=== PATIENT | female | born 1960 | race Caucasian/White ===

== ENCOUNTER 2017-05-04 11:40 | Emergency (ER) | payer MEDICAID, OTHER ==
[~2017-05-04] VITALS: Ht 157.5 cm; Wt 61.5 kg
[~2017-05-04 11:40] MED LIST: CARB200T14 PO; CITA-48 PO; DIAZ10TA PO; FLAG500T PO; LEXA10TA PO; MAGN400 PO; OMEP20TA PO; SODI1 PO; TEMA30CA PO; ZIPR80CA PO
[2017-05-04 11:44] VITALS: BP 119/79; PULSE 90; RESP 18; TEMP 97.9; O2SAT 98
[2017-05-04 11:58] VITALS: O2SAT 98
[2017-05-04] MEDS ORDERED: DIAZ10 PO (11:58)
[2017-05-04] MEDS ORDERED: FOLI400T PO (11:58)
[2017-05-04] MEDS ORDERED: HYDR-2374 PO (11:58)
[2017-05-04] MEDS ORDERED: IBUP400T20 PO (11:58)
[2017-05-04] MEDS ORDERED: TEGR200T PO (11:58)
[2017-05-04] MEDS ORDERED: OMEP40CA2 PO (11:58)
[2017-05-04] MEDS ORDERED: VANCOMYCIN INJ 1,000 MG in SODIUM CHLOR 0.9% 250 ML INJ 250 ML IV ONE (12:00)
--- NOTE | 2017-05-04 12:01 | PD ---
HPI Chief Complaint: Pain: Acute or Chronic Time Seen by Provider: 11:49 Travel History International Travel<30 days: No Contact w/Intl Traveler<30days: No Traveled to known affect area: No History of Present Illness HPI Patient is a 57-year-old female presents emergency department for evaluation of left ankle pain. She states she's had a problem with left ankle some time. She states that every time her ankle hurts her at usually because the infection is coming back. She states that she usually needs a dose of IV antibiotics for this. Patient states she is on chronic pain medicine and ran out of her pain medicine a few days ago. According to ED for sepsis is early for her she received a 30 days supply of 90 tablets on April 07. Patient states "I don't think I need any pain medicine right now just antibiotics". Patient denies any fever denies any nausea vomiting or generalized symptoms. PFSH Past Medical History Bipolar Disorder: Yes Anxiety: Yes GERD: Yes Influenza Vaccination: No ?: Not Menopausal: Yes Past Surgical History Other Surgery: Yes Social History Alcohol Use: No Tobacco Use: Yes Substance Use: No Allergies-Medications (Allergen,Severity, Reaction): Coded Allergies: No Known Allergies (Unverified , 11/11/12) Reported Meds & Prescriptions Reported Meds & Active Scripts Active Doxycycline Hyclate 100 Mg Cap 100 Mg PO BID Reported Ibuprofen 400 Mg Tab 400 Mg PO Q6H PRN Folic Acid 0.4 Mg Tab 400 Mcg PO DAILY Valium (Diazepam) 10 Mg Tab 10 Mg PO BID PRN Omeprazole 40 Mg Cap 40 Mg PO DAILY Tegretol (Carbamazepine) 200 Mg Tab 400 Mg PO BID Hydrocodone-Acetaminophen 10-300 Tab 1 Tab PO TID PRN Review of Systems Except as stated in HPI: all other systems reviewed are Neg Physical Exam Narrative GENERAL: Well-developed well-nourished no obvious distress SKIN: Focused skin assessment warm/dry. HEAD: Atraumatic. Normocephalic. EYES: Pupils equal and round. No scleral icterus. No injection or drainage. ENT: No nasal bleeding or discharge. Mucous membranes pink and moist. NECK: Trachea midline. No JVD. CARDIOVASCULAR: Regular rate and rhythm. No murmur appreciated. RESPIRATORY: No accessory muscle use. Clear to auscultation. Breath sounds equal bilaterally. GASTROINTESTINAL: Abdomen soft, non-tender, nondistended. Hepatic and splenic margins not palpable. MUSCULOSKELETAL: Post surgical changes of the left ankle, no warmth no edema is appreciated. Minimally tender to palpation, no bony tenderness. Full nontender range of motion patient is able to ambulate. NEUROLOGICAL: Awake and alert. No obvious cranial nerve deficits. Motor grossly within normal limits. Normal speech. PSYCHIATRIC: Appropriate mood and affect; insight and judgment normal. Data Data Last Documented VS Vital Signs Date Time Temp Pulse Resp B/P (MAP) Pulse Ox O2 Delivery O2 Flow Rate FiO2 05/04/17 14:44 89 20 120/84 (96) 98 05/04/17 11:58 Room Air 05/04/17 11:44 97.9 Orders Orders Complete Blood Count With Diff (05/04/17 11:49) Comprehensive Metabolic Panel (05/04/17 11:49) Blood Culture (05/04/17 11:49) Ecg Monitoring (05/04/17 11:49) Iv Access Insert/Monitor (05/04/17 11:49) Oximetry (05/04/17 11:49) Oxygen Administration (05/04/17 11:49) Vancomycin Inj (Vancomycin Inj) (05/04/17 12:00) Ankle, Complete ([id number]) (05/04/17 ) Doxycycline (Vibramycin) (05/04/17 14:30) Labs Laboratory Tests Test 05/04/17 12:49 White Blood Count 15.6 TH/MM3 Red Blood Count 3.84 MIL/MM3 Hemoglobin 12.5 GM/DL Hematocrit 37.8 % Mean Corpuscular Volume 98.5 FL Mean Corpuscular Hemoglobin 32.5 PG Mean Corpuscular Hemoglobin Concent 33.0 % Red Cell Distribution Width 14.7 % Platelet Count 380 TH/MM3 Mean Platelet Volume 7.5 FL CBC Comment AUTO DIFF Differential Total Cells Counted 100 Neutrophils % (Manual) 78 % Lymphocytes % 12 % Monocytes % 9 % Eosinophils % 1 % Neutrophils # (Manual) 12.2 TH/MM3 Differential Comment FINAL DIFF MANUAL Platelet Estimate NORMAL Platelet Morphology Comment NORMAL Blood Urea Nitrogen 10 MG/DL Creatinine 0.55 MG/DL Random Glucose 88 MG/DL Total Protein 7.4 GM/DL Albumin 3.4 GM/DL Calcium Level 8.4 MG/DL Alkaline Phosphatase 82 U/L Aspartate Amino Transf (AST/SGOT) 7 U/L Alanine Aminotransferase (ALT/SGPT) 21 U/L Total Bilirubin 0.3 MG/DL Sodium Level 131 MEQ/L Potassium Level 4.5 MEQ/L Chloride Level 98 MEQ/L Carbon Dioxide Level 28.0 MEQ/L Anion Gap 5 MEQ/L Estimat Glomerular Filtration Rate 114 ML/MIN MDM Medical Decision Making Medical Screen Exam Complete: Yes Emergency Medical Condition: Yes Differential Diagnosis Chronic indolent infection, sepsis unlikely, osteomyelitis seems unlikely, abscess excluded clinically. Narrative Course Patient roomed emergency Department, she does have minimally elevated white blood cell count with minimal left shift. She was given a dose of IV vancomycin and blood cultures drawn and sent. However the patient appears very well and is sitting upright in a stretcher reading a novel. She will be discharged on doxycycline. Last 24 hours Impressions Ankle X-Ray 05/04/17 0000 Signed Impressions: Service Date/Time: Thursday, May 04, 2017 13:27 - CONCLUSION: 1. Distal left tibia and fibula deformity characteristic of old healed fractures. 2. Soft tissue swelling in the mid calf to ankle with associated subcortical sclerosis in the distal tibia. Chronic osteomyelitis needs to be considered. 3. 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 Tremaine Yang MD I discussed with her the results of her x-ray and recommended close follow-up with her primary care physician as well as her infectious disease officer. She states she wants to go home and I think is reasonable this time. Diagnosis Primary Impression: Chronic osteomyelitis Med/Other Pt SpecificInfo: Prescription(s) given Scripts Doxycycline Hyclate (Doxycycline Hyclate) 100 Mg Cap 100 MG PO BID for Infection, #28 CAP 0 Refills Prov: Tate Haley MD 05/04/17 Disposition: 01 DISCHARGE HOME Condition: Stable Tate Haley MD May 04, 2017 12:01
[2017-05-04 13:02] LABS: HEMATOCRIT 37.8 % (35.0-46.0); MEAN CELL VOLUME 98.5 FL (80.0-100.0); MEAN CORPUSCULAR HEMOGLOBIN 32.5 PG (27.0-34.0); PLATELET COUNT 380 TH/MM3 (150-450); RED BLOOD COUNT 3.84 MIL/MM3 (4.00-5.30); RED CELL DISTRIBUTION WIDTH 14.7 % (11.6-17.2); WHITE BLOOD COUNT 15.6 TH/MM3 (4.0-11.0)
[2017-05-04 13:03] LABS: HEMO FLAGS AUTO DIFF
[2017-05-04 13:23] LABS: CHLORIDE 98 MEQ/L (98-107); POTASSIUM 4.5 MEQ/L (3.5-5.1); SODIUM (NA) 131 MEQ/L (136-145)
[2017-05-04 13:26] LABS: ANION GAP 5 MEQ/L (5-15); BLOOD UREA NITROGEN 10 MG/DL (7-18)
[2017-05-04 13:29] LABS: ALT (GPT) 21 U/L (10-53); AST (GOT) 7 U/L (15-37); GLOMERULAR FILTRATION RATE 114 ML/MIN (>89)
[2017-05-04 13:31] LABS: TOTAL BILIRUBIN ADULT 0.3 MG/DL (0.2-1.0)
[2017-05-04 13:32] LABS: ALKALINE PHOSPHATASE 82 U/L (45-117)
--- NOTE | 2017-05-04 13:41 | RADRPT ---
EXAM DATE/TIME: 05/04/2017 13:27 [facility] COMPARISON: No previous studies available for comparison. INDICATIONS : Left ankle pain and swelling. MEDICAL HISTORY : Left lower leg MRSA. Left lower leg fracture. SURGICAL HISTORY : Previous lower left leg surgery. ENCOUNTER: Initial ACUITY: 3 days PAIN SCORE: 10/10 LOCATION: Left ankle. FINDINGS: Marked deformity is identified of the distal left tibia and fibula characteristic of healed old fract ures. There is overlying soft tissue swelling and significant subcortical sclerosis. There are no dis crete cortical erosions changes. There is no evidence of periosteal reaction. Significant tibiotalar degenerative disease is seen. There is joint space narrowing, subchondral scle rosis and marginal spurring. CONCLUSION: 1. Distal left tibia and fibula deformity characteristic of old healed fractures. 2. Soft tissue swelling in the mid calf to ankle with associated subcortical sclerosis in the distal tibia. Chronic osteomyelitis needs to be considered. 3. 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 Tremaine Yang MD on May 04, 2017 at 13:36 Board Certified Radiologist. This report was verified electronically.
[2017-05-04 13:42] LABS: EOSINOPHILS 1 % (0-4); NEUTROPHIL # MANUAL DIFF 12.2 TH/MM3 (1.8-7.7); PLATELET ESTIMATE SMEAR NORMAL (NORMAL); PLATELET MORPHOLOGY NORMAL (NORMAL); POLYS (SEG NEUTROPHILS) 78 % (16-70); SCAN/DIFF FINAL DIFF MANUAL; WBC DIFF SAMPLE 100
[2017-05-04] MEDS ORDERED: DOXY100C PO (14:27)
[2017-05-04] MEDS ORDERED: DOXYCYCLINE HYCLATE 100 MG CAP PO SCH (14:30)
[2017-05-04 14:44] VITALS: BP 120/84
== END 2017-05-04 14:54 | disposition home or self-care (01) ==
LOC: PHED 11:40
DX: M86.60 Other chronic osteomyelitis, unspecified site (principal)
CPT/HCPCS: 73610; 80053; 85007; 85027; 87040; 96365; 99284; J3370; J7050